=== PATIENT | female | born 1985 | race Caucasian/White ===

== ENCOUNTER 2021-11-03 23:32 | Emergency (ER) | payer SELFPAY ==
[~2021-11-03] VITALS: Ht 167.6 cm; Wt 73.0 kg
[2021-11-03 23:33] VITALS: BP 112/76
[2021-11-04] MEDS ORDERED: NITR100C MT (03:51)
== END 2021-11-04 00:19 | disposition home or self-care (01) ==
LOC: ER 23:32
DX: R53.1 Weakness (principal); T69.9XXA Effect of reduced temperature, unspecified, initial encounter; X31.XXXA Exposure to excessive natural cold, initial encounter; Y93.9 Activity, unspecified; Y92.89 Other specified places as the place of occurrence of the external cause; Z59.00 Homelessness unspecified
CPT/HCPCS: 99283

== ENCOUNTER 2021-11-04 00:57 | Emergency (ER) | payer SELFPAY ==
[~2021-11-04] VITALS: Ht 170.2 cm; Wt 91.0 kg
[2021-11-04 01:55] VITALS: BP 111/65
[2021-11-04 02:50] LABS: CLARITY URINE TURBID (CLEAR); COLOR URINE YELLOW (YELLOW); KETONES URINE TRACE (NEGATIVE); LEUKOCYTE ESTERASE URINE 3+ (NEGATIVE); NITRITE URINE POSITIVE (NEGATIVE); OCCULT BLOOD URINE NEGATIVE (NEGATIVE); PH URINE 6.5 (4.5-8.0); PROTEIN URINE TRACE (NEGATIVE); SPECIFIC GRAVITY URINE 1.026 (1.005-1.030)
[2021-11-04] MEDS ORDERED: CEFTRIAXONE SODIUM 500 MG/VIAL IM ONE (03:15)
[2021-11-04] MEDS ORDERED: LIDOCAINE HCL 1% 20ML VIAL (Pyxis) INJ INFIL ONE (03:15)
[2021-11-04] MEDS ORDERED: NITR100C MT (03:51)
== END 2021-11-04 04:59 | disposition home or self-care (01) ==
LOC: ER 00:57
DX: N39.0 Urinary tract infection, site not specified (principal); J45.909 Unspecified asthma, uncomplicated; Z98.890 Other specified postprocedural states
CPT/HCPCS: 81003; 87086; 96372; 99283; J0696; J3490